=== PATIENT | female | born 1985 | race Caucasian/White ===

== ENCOUNTER 2018-02-14 13:11 | Inpatient (IN) | payer OTHER ==
[~2018-02-14] VITALS: Ht 157.5 cm; Wt 88.6 kg
[~2018-02-14 13:11] MED LIST: MOTRIN 600600 MG/TAB; PERCOCET 325 MG1 TA2 PO; TIROSINT100 MC1 PO
[2018-02-16] VITALS (18 sets, daily range): BP systolic 102–133; BP diastolic 45–92; PULSE 55–90; TEMP 97–98.3
[2018-02-16 10:37] LABS: BASO % 0.3 % (0.0-2.0); EOS # 0.1 (0.0-0.7); EOS % 1.3 % (0-4.0); GRAN # 6.5 (1.4-6.5); GRAN % 71.7 % (42.2-75.2); HEMATOCRIT 37.1 % (37.0-47.0); HEMOGLOBIN 12.5 g/dl (12.5-16.0); LYMPH # 1.7 (1.2-3.4); LYMPH % 18.6 % (20.0-51.0); MEAN CELL VOLUME 100 fl (80.0-100.0); MEAN CORPUSCULAR HEMOGLOBIN 34 pg (27.0-31.0); MEAN CORPUSCULAR HGB CONC 34 g/dl (33.0-37.0); MEAN PLATELET VOLUME 10.2 fl (7.4-10.4); MONO # 0.6 (0.1-0.6); MONO % 6.9 % (1.7-9.3); PLATELET COUNT 149 K/mm3 (130-400); RED BLOOD COUNT 3.73 M/mm3 (4.10-5.30); REDCELL DISTRIBUTION WIDTH-CV 13.6 % (11.5-14.5)
[2018-02-16] MEDS ORDERED: PRENATAL (10:40)
[2018-02-17 00:50] VITALS: BP 108/49; PULSE 73; TEMP 99
[2018-02-17 05:05] VITALS: BP 107/53; PULSE 64; TEMP 97.9
[2018-02-17 08:20] VITALS: BP 101/39; PULSE 65; TEMP 97.5
[2018-02-17] MEDS ORDERED: IBU800 M1 PO (11:04)
[2018-02-17] MEDS ORDERED: PERCOCET 325 MG1 TA2 PO (11:04)
[2018-02-17 11:40] VITALS: BP 115/59; PULSE 70; TEMP 97.6
[2018-02-17 17:00] VITALS: BP 115/49; PULSE 62; TEMP 97.9
[2018-02-17 20:31] VITALS: BP 105/51; PULSE 55; TEMP 98.3
[2018-02-18 07:10] VITALS: BP 115/48; PULSE 55; TEMP 97.5
== END 2018-02-18 10:15 | disposition home or self-care (01) | DRG 766 ==
LOC: LDR 13:11 → OB 02-16 09:56 → LDR 02-16 14:31 → OB 02-18 10:15
PROVIDERS: Student in an Organized Health Care Education/Training Program
PROC: 10D00Z1 Extraction of Products of Conception, Low, Open Approach (ICD-10-PCS; principal; 2018-02-16)
PROC: 0UT70ZZ Resection of Bilateral Fallopian Tubes, Open Approach (ICD-10-PCS; 2018-02-16)
DX: O34.211 Maternal care for low transverse scar from previous cesarean delivery (principal); Z3A.39 39 weeks gestation of pregnancy; Z37.0 Single live birth; Z40.03 Encounter for prophylactic removal of fallopian tube(s); O99.284 Endocrine, nutritional and metabolic diseases complicating childbirth; E03.8 Other specified hypothyroidism
CPT/HCPCS: J0171; J0690; J1885; J2270; J2370; J2405; J2590; J2704; J2765; J3010; J7120

== ENCOUNTER → 2023-09-01 | Outpatient (CLI) | payer OTHER ==
[~2023-09-01] MED LIST changes: +IBU800 M1 PO; +PRENATAL
== END ==
LOC: MC.RAD 08:36
DX: Z12.31 Encounter for screening mammogram for malignant neoplasm of breast (principal)